=== PATIENT | male | born 2005 | race Caucasian/White ===

== ENCOUNTER → 2023-07-23 12:47 | Outpatient (REF) | payer BC, SELFPAY | LOC: HWRAD 12:47 | PROVIDERS: ATTENDING PHYSICIAN Surgery; FAMILY PHYSICIAN Nurse Practitioner Family | DX: D17.1 Benign lipomatous neoplasm of skin and subcutaneous tissue of trunk (principal) | CPT/HCPCS: 76604 ==

== ENCOUNTER 2023-09-21 06:11 | Day surgery (SDC) | payer BC, SELFPAY ==
[2023-09-21] VITALS (15 sets, daily range): BP systolic 88–131; BP diastolic 31–82; BMI 24.4
[2023-09-21] MEDS: TYLENOL 1000 MG PO (07:15)
[2023-09-21] MEDS: NORMOSOL-R 1000 IV (07:18)
== END 2023-09-21 09:36 | disposition home or self-care (01) ==
LOC: SDS 06:11
PROVIDERS: ATTENDING PHYSICIAN Surgery
DX: D17.1 Benign lipomatous neoplasm of skin and subcutaneous tissue of trunk (principal); R22.2 Localized swelling, mass and lump, trunk
CPT/HCPCS: 11404; 12032; 88304

== ENCOUNTER 2024-08-29 11:34 | Day surgery (SDC) | payer BC, SELFPAY ==
[2024-08-29] VITALS (11 sets, daily range): BP systolic 114–127; BP diastolic 55–80; BMI 24.4
--- NOTE | 2024-08-29 10:30 | ED.GENMED ---
History of Present Illness
General
Chief Complaint: Post Operative Problem(s)
Source: patient
Exam Limitations: none
Time Seen by Provider: 08/29/24 10:08
Nursing documentation reviewed up to this point in time: agreed with
History of Present Illness
History of Present Illness:
Patient is a 18-year-old male status post tonsillectomy by Dr. Delgado 1 week ago. He reports a parents when he started bleeding from the right posterior pharynx. He reports it bled for about 10 minutes and just restarted. Patient presents awake
alert stable. He is spitting bright red blood however no acute distress. He denies any difficulty breathing otherwise patient is tolerating secretions
Review of Systems
Review of Systems
Allergies reviewed?: Yes
All Other Systems: ROS reviewed and negative except as documented in HPI and ROS
Constitutional: Reports no symptoms; Denies fever, fatigue or chills
EENT: Reports other (bleeding from right post tonsillectomy site)
Respiratory: Reports no symptoms; Denies cough or trouble breathing
Musculoskeletal: Reports no symptoms
Skin: Reports no symptoms
Neurological: Reports no symptoms
Psychiatric: Reports no symptoms
Phy Exam
General Physical Exam
General Presentation: no apparent distress
General age: appears stated age
General Skin: warm and dry
General Habitus: normal
General Mental: alert
General Hydration: appears well hydrated
ENT Exam
ENT Exam: other (No drooling time secretions well patient with active bright red bleeding from right posterior tonsillectomy site+ positive scabs visible I am unable to visualize exact site of bleeding no drooling tongue secretions well)
Cardiovascular Exam
Cardiovascular Exam: regular rate/rhythm, no murmur and normal peripheral pulses
Pulmonary Exam
Pulmonary Exam: lungs clear and no respiratory distress
Neurological Exam
Neurological Exam: alert and oriented x3
Musculoskeletal Exam
Musculoskeletal Exam: full ROM
Skin Exam
Skin Exam: normal color and warm/dry
Psychiatric Exam
Psychiatric Exam: normal mood/affect
Course
Orders/Labs/Results
Orders:
Orders
08/29/24 10:31
IV Insert/Care/Rem.- Treatment PRN
0.9% Sodium Chloride 1000 ml [Nss] 1,000 ml IV BOLUS
08/29/24 10:43
Complete Blood Count/With Diff Urgent
Comprehensive Metabolic Panel Urgent
08/29/24 10:47
Bupivacaine 0.25%Pf/Epinephrin [Sensorcaine-Epi 0.25%-0.0005] 30 ml .ROUTE .STK-MED ONE
08/29/24 10:48
Oxymetazoline HCl [Afrin Nasal [place]] 30 sprays .ROUTE .STK-MED ONE
08/29/24 11:00
Lidocaine HCl/Pf [Xylocaine-Mpf 1% Vial] 50 mg .ROUTE .STK-MED ONE
Propofol [Diprivan] 20 ml .ROUTE .STK-MED
Rocuronium [place] [Rocuronium] 50 mg .ROUTE .STK-MED ONE
08/29/24 11:02
Midazolam HCl [Versed] 2 mg .ROUTE .STK-MED ONE
08/29/24 11:03
Fentanyl Citrate/Pf [Sublimaze] 100 mcg .ROUTE .STK-MED ONE
Fentanyl Citrate/Pf [Sublimaze] 100 mcg .ROUTE .STK-MED ONE
08/29/24 11:33
Ketamine 5 ml .ROUTE .STK-MED
08/29/24 11:35
Dexamethasone Sod Phosphate [Decadron] 20 mg .ROUTE .STK-MED ONE
Famotidine [Pepcid] 20 mg .ROUTE .STK-MED ONE
Ondansetron Injectable [Zofran] 4 mg .ROUTE .STK-MED ONE
Sugammadex Sodium [Bridion] 200 mg .ROUTE .STK-MED ONE
08/29/24 11:42
Acetaminophen 1000MG/100Ml [Ofirmev] 1,000 mg in 100 ml .ROUTE .STK-MED
08/29/24 11:47
HYDROmorphone [Dilaudid] 0.25 mg IV PACU-Q5MPRN PRN
HYDROmorphone [Dilaudid] 0.5 mg IV PACU-Q5MPRN PRN
Meperidine [Demerol] 12.5 mg IV PACU-Q5MPRN PRN
Ondansetron Injectable [Zofran] 4 mg IV PACU-ONCEPRN PRN
Prochlorperazine [Compazine] 5 mg IV PACU-ONCEPRN PRN
Tranexamic Acid 1000 mg/100 ml [Tranexamic Acid] 1,000 mg in 100 ml .ROUTE .STK-MED
Notify MD As Directed
Notify physician if: for SDS patients with known or suspected sleep obstructive sleep apnea, monitor in the
PACU.
Notify MD for any apneic/desaturation episodes
O2 Therapy [RESP] Urgent
Titrate/Wean O2 to maintain O2 sat greater than (%): 92
Special Instructions: -Provide supplemental oxygen to achieve O2 sat of 92% or greater.
-After 15 min, may wean O2 and discontinue if patient is able to maintain O2 sat of 92%
or greater during recovery period.
If patient is a discharge home, without oxygen therapy, notify anestheiologist if
unable to maintain O2 SAT of 92% or greater on room air for MD clearance.
08/29/24 12:00
Flush (0.9% Sodium Chloride) [Flush (Nss)] See Dose Instructions IV PER PROTOCOL
Normosol (Mult Electrolytes) [Normosol-R/Plasmalyte-A] 1,000 ml IV PER PROTOCOL
08/29/24 13:00
Oxycodone [Roxicodone Oral Solution] 5 mg PO SDS-Q4HPRN PRN
Abnormal Lab Results
08/29/24
10:43
MCH 32.1 H pg
(27.0-31.0)
Absolute Monos (auto) 1.1 H 10^3/uL
(0.1-0.6)
Immature Gran % 0.6 H %
(0-0.5)
Monocytes % 16.8 H %
(1.7-9.3)
AST 16 L U/L
(17-59)
08/29/24 10:43
08/29/24 10:43
Vital Signs
Initial and Last Documented VS:
Initial Vital Signs
Temp Pulse Resp BP Pulse Ox
98.4 F 71 18 127/80 98
08/29/24 09:40 08/29/24 09:40 08/29/24 09:40 08/29/24 09:40 08/29/24 09:40
Last Documented Vital Signs
Temp Pulse Resp BP Pulse Ox
98.4 F 66 18 122/61 98
08/29/24 12:50 08/29/24 13:30 08/29/24 13:30 08/29/24 13:30 08/29/24 13:30
MDM/Problems Addressed
Differential Diagnosis Includes:
Not limited to postoperative bleeding
MDM/Problems Addressed:
Patient is status post tonsillecto my 1 week ago presents with postoperative bleeding. He is no acute distress no drooling not short of breath tongue secretions well. Case discussed with ENT Dr. Vincent on-call who recommends IV and patient will be
going to the OR
*Pulse Oximetry
Patient hypoxic: no
*Critical Care Note
Total Time (30-74mins, 75-104mins- exclusive of procedures): Not Applicable
Patient Management
Discussion with other providers: Cash Application Clerk (Dr Vincent )
ED Attending Note
-
Portions of this chart may have been created with voice recognition software.� Occasional wrong word or��sound alike� substitutions may have occurred due to the inherent limitations of voice recognition software.
Discharge Plan
Departure
Patient Disposition: OR
Date of Disposition: 08/29/24
Time of Disposition: 10:39
Admit to: OR
Admit to doctor: mass
Presentation/result/management discussed w/ accepting MD/DO: mass
Covid-19: Not Applicable
Discharge Problem:
Post-op bleeding
Interventions
Interventions:
*Risk Screen - Suicide Last Done: 08/29/24 10:34
*General Assessment Last Done: 08/29/24 10:34
*Neglect/Abuse Screening Last Done: 08/29/24 10:34
*ED- Fall Risk Assessment Last Done: 08/29/24 10:34
*ED COVID-19 Vaccine History Last Done: 08/29/24 10:34
*Nursing Disposition Last Done: 08/29/24 11:06
ED-Skin Assessment Last Done: 08/29/24 10:36
Discharge Date and Time
Discharge Date/Time: 08/29/24 11:07
--- NOTE | 2024-08-29 10:32 | EDRN ---
Pt has started bleeding again from his throat at this time.
--- NOTE | 2024-08-29 10:34 | EDRN ---
Pt per Willam Dubose MARKETING PROPOSAL COORDINATOR will go to OR. Dr. Vincent is coming in to take pt to OR.
[2024-08-29] MEDS: NSS 1000 IV (10:45)
--- NOTE | 2024-08-29 10:54 | EDRN ---
Pt just voided and had BM in BR.
--- NOTE | 2024-08-29 10:57 | EDRN ---
Pt awaiting tech to take him to OR at this time.
[2024-08-29 11:04] LABS: % Basophils 0.6 % (0-2); % Eosinophils 0.9 % (0-6); % Immature Granulocytes 0.6 % (0-0.5); % Lymphocytes 23.4 % (20.5-51.1); % Monocytes 16.8 % (1.7-9.3); % Neutrophils 57.7 % (42.2-75.2); Absolute Eosinophils 0.1 10^3/uL (0-0.7); Absolute Lymphocytes 1.5 10^3/uL (1.2-3.4); Absolute Monocytes 1.1 10^3/uL (0.1-0.6); Absolute Neutrophils 3.7 10^3/uL (1.4-6.5); Hematocrit 46.5 % (39.0-52.0); Hemoglobin 17.1 g/dL (13.0-18.0); Mean Corp Hgb Conc. 36.8 g/dL (33.0-37.0); Mean Corpuscular Hgb 32.1 pg (27.0-31.0); Mean Corpuscular Volume 87.2 fL (80.0-94.0); Mean Platelet Volume 9.3 fL (7.4-10.4); Nucleated Red Blood Cells % 0 % (-); Platelet Count 263 10^3/uL (130-400); Red Blood Cell Count 5.33 10^6/uL (4.70-6.10); Red Cell Dist. Width 11.9 % (11.5-14.5); White Blood Cell Count 6.4 10^3/uL (4.8-10.8)
--- NOTE | 2024-08-29 11:14 | HP.FOC2 ---
Focused History & Physical
Chief Complaint
HPI:
Chief Complaint: Post tonsillectomy bleeding
HPI / Indication for Planned Procedure: We will proceed with control of post tonsillectomy bleeding which may be on the right side
Full H and P is dictated seperately
Relevant Past Medical History: Negative
Review of Systems
Review of Pertinent Systems: All Systems Negative Except for the Following Positives (Blood in throat)
Medication
See Medication form for detailed medications: Yes
Medication List (including Herbals & OTC):
acetaminophen 325 mg tablet 650 mg (2 x 325 mg) PO Q4HPRN PRN mild pain #1 tab 09/21/23
amoxicillin 400 mg/5 mL oral suspension 400 mg PO BID 08/29/24
hydrocodone 5 mg-acetaminophen 325 mg tablet 1 tab PO Q4HPRN PRN SEVERE PAINS 08/29/24
Medications Reviewed: Yes
Allergies and Reactions
Patient has Allergies: No
Noted Allergies and Reactions:
Allergy/AdvReac Type Severity Reaction Status Date / Time
No Known Allergies Allergy Verified 09/21/23 07:04
Pertinent Physical Exam
All Other Systems: Negative
Head/Neck: Other (Clot in right oral pharyx)
Lungs: Normal
Heart: Normal
Extremities: Normal
Neurological: Normal
Diagnosis / Assessment
Post tonsillectomy bleeding
Plan / Procedure
To OR for control
Anesthesia/Sedation to be done by Anesthesia Provider: Yes
[2024-08-29 11:19] LABS: ALT (SGPT) 17 U/L (0-50); AST (SGOT) 16 U/L (17-59); Albumin 4.8 g/dl (3.5-5.0); Alkaline Phosphatase 45 U/L (38-126); Blood Urea Nitrogen 14 mg/dl (9-20); Calcium 9.9 mg/dl (8.4-10.2); Carbon Dioxide 29 mmol/L (22-30); Chloride 104 mmol/L (98-107); Estimated Creatinine Clearance 118 ml/min; Glucose 98 mg/dl (70-99); Potassium 4.2 mmol/L (3.5-5.1); Sodium 141 mmol/L (135-145); Total Bilirubin 0.9 mg/dl (0.2-1.3); Total Protein 7.5 g/dl (6.3-8.2); eGFR > 60.00
== END 2024-08-29 13:34 | disposition home or self-care (01) ==
LOC: SDS 11:34
PROVIDERS: Nurse Practitioner; ATTENDING PHYSICIAN Otolaryngology; EMERGENCY PHYSICIAN Emergency Medicine; FAMILY PHYSICIAN Nurse Practitioner Family
DX: J95.830 Postprocedural hemorrhage of a respiratory system organ or structure following a respiratory system procedure (principal)
CPT/HCPCS: 42962; 80053; 85025; 99284